=== PATIENT | female | born 1980 ===

== ENCOUNTER 2021-01-20 21:36 | Emergency (ER) | payer MEDICARE, MEDICAID ==
[~2021-01-20] VITALS: Ht 170.1 cm; Wt 57.6 kg
--- OUTSIDE RECORDS SUMMARY | 2021-01-20 21:45 | XMS REPORT | Clinical Summary ---
Author Author [facility] Organization [facility] Address Unknown Phone Unavailable Care Team Providers Care Assistant Football Coach Name Role Phone Anibal Modi MD PCP Source Comments Some departments are not documenting in the electronic medical record. If you d o not see the information that you expected, contact Release of Information in [facility] [employer] Information Management department at [phone] for further assistan ce in locating additional records.[facility] Allergies Comments Active Allergy Reactions Severity Noted Date Azithromycin NAUSEA AND 12/03/2012 VOMITING Codeine NAUSEA AND 12/03/2012 VOMITING Penicillins HIVES 12/03/2012 Oxycodone-Acetaminophen HIVES 12/03/2012 Sulfa (Sulfonamide HIVES 12/03/2012 Antibiotics) Alprazolam SWOLLEN 12/03/2012 TONGUE Medications End Date Status Medication Sig Dispensed Refills Start Date Active ondansetron (ZOFRAN ODT) Take 4 mg by 0 4 mg rapid dissolve mouth every 8 tablet hours as needed. Active TRAMADOL HCL (TRAMADOL Take by 0 PO) mouth. Active ARIPIPRAZOLE (ABILIFY PO) Take by 0 mouth. Active ESCITALOPRAM OXALATE Take by 0 (LEXAPRO PO) mouth. Active naproxen (NAPROSYN) 500 Take 1 Tab by 30 Tab 0 201 mg tablet mouth twice 3 daily with meals. Active Problems Not on file Social History Date Tobacco Use Types Packs/Day Years Used Never Assessed Sex Assigned at Date Recorded Not on file Last Filed Vital Signs Reading Time Taken Comments Vital Sign 130/82 12/03/2012 8:29 PM CDT Blood Pressure 78 12/03/2012 6:26 PM CDT Pulse 36.8 C (98.3 F) 12/03/2012 6:26 PM CDT Temperature - - Respiratory Rate 98% 12/03/2012 8:29 PM CDT Oxygen Saturation - - Inhaled Oxygen Concentration - - Weight - - Height - - Body Mass Index Plan of Treatment Health Maintenance Due Date Last Done Comments HIV SCREENING 1993 DTAP/TDAP VACCINES (1 - 1996 Tdap) HEPATITIS C SCREENING 1996 PHYSICAL (COMPREHENSIVE) 1996 EXAM CERVICAL CANCER SCREENING 10/08/1999 BREAST CANCER SCREENING 2018 INFLUENZA VACCINE 03/08/2021 Results Not on filefrom Last 3 Months
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
--- NOTE | 2021-01-20 22:39 | Diagnostic Imaging Report ---
INDICATION: Neck injury. EXAMINATION: Cervical spine. AP and lateral views of the cervical spine show normal vertebral body height and alignment. Disc spaces are normal. There is no prevertebral soft tissue swelling. IMPRESSION: Unremarkable cervical spine. Dictated by: Dictated on workstation # [id number]
--- NOTE | 2021-01-20 22:40 | Diagnostic Imaging Report ---
INDICATION: Left shoulder injury. EXAMINATION: Three views of the left shoulder. No fracture, dislocation or other acute abnormality. IMPRESSION: Negative left shoulder. Dictated by: Dictated on workstation # [id number]
--- NOTE | 2021-01-20 22:44 | Diagnostic Imaging Report ---
INDICATION: Chest trauma. EXAMINATION: Portable chest at 10:05 PM. Heart size and pulmonary vascularity are normal. There is no mediastinal widening. Lungs are clear. There is no effusion or pneumothorax. IMPRESSION: Negative chest. Dictated by: Dictated on workstation # [id number]
--- NOTE | 2021-01-20 22:45 | Diagnostic Imaging Report ---
INDICATION: Back injury. EXAMINATION: Lumbar spine. AP and lateral views of the lumbar spine show normal vertebral body height and alignment. Disc spaces are normal. IMPRESSION: Negative lumbar spine. Dictated by: Dictated on workstation # [id number]
[2021-01-20] MEDS ORDERED: IBUPROFEN TABLET 200 MG TAB PO ONE (23:00)
[2021-01-20 23:21] VITALS: BP 110/77
== END 2021-01-20 23:21 | disposition home or self-care (01) ==
LOC: ER FS 21:40
DX: S13.4XXA Sprain of ligaments of cervical spine, initial encounter (principal); S33.5XXA Sprain of ligaments of lumbar spine, initial encounter; S20.219A Contusion of unspecified front wall of thorax, initial encounter; S80.02XA Contusion of left knee, initial encounter; S80.01XA Contusion of right knee, initial encounter; V89.2XXA Person injured in unspecified motor-vehicle accident, traffic, initial encounter
CPT/HCPCS: 71045; 72040; 72100; 73030